=== PATIENT | male | born 1950 | race Caucasian/White ===

== ENCOUNTER 2021-08-26 13:45 | Observation (INO) | payer MEDICARE ==
--- NOTE | 2021-08-26 14:16 | ED ---
General Adult HPI - General Chief complaint: Upper Respiratory Infection Stated complaint: + covid Time Seen by Provider: 08/26/21 13:45 Source: patient, EMS, RN notes reviewed Mode of arrival: EMS Limitations: no limitations - History of Present Illness Initial comments: 70-year-old male who is brought in for evaluation after being diagnosed with COVID-19 this morning a cough for the past 3-4 days no overt fevers chills or sweats except occasional night sweats he states he was tested twice today and both are positive. He is currently at rehab for physical therapy after a T4 through T10 fusion on the ninth of this month. He was noted have dark urine per paramedics. He denies any dysuria he does have an indwelling Dee catheter. No other current complaints or modifying factors - Related Data Home Medications Medication Instructions Recorded Confirmed ARIPiprazole [Abilify] 2 mg PO DAILY@0900 08/26/21 08/26/21 Albuterol Sulfate [Accuneb] 3 ml INHALATION RT-Q4H PRN 08/26/21 08/26/21 Budesonide/Formoterol Fumarate 2 puff INHALATION RT-BID@899,209908/26/21 08/26/21 [Symbicort 160-4.5 Mcg Inhaler] Calcium Carbonate/Vitamin D3 1 tab PO DAILY@89908/26/21 08/26/21 [Calcium 500 mg-Vit D3 5 mcg (200 Unit)] Doxycycline [Vibramycin] 100 mg PO BID@0900,209908/26/21 08/26/21 Famotidine [Pepcid] 40 mg PO HS@209908/26/21 08/26/21 Finasteride [Proscar] 5 mg PO HS@209908/26/21 08/26/21 Gabapentin 300 mg PO HS@209908/26/21 08/26/21 Ipratropium [place] 0.06%Nasal 2 spray EA NOSTRIL 08/26/21 08/26/21 [Atrovent Nasal 0.06%] TID@0900,1499,2099 Linaclotide [Linzess] 72 mcg PO DAILY@0900 08/26/21 08/26/21 Losartan Potassium 50 mg PO BID@899,209908/26/21 08/26/21 Methyl Salicylate/Menth/Camph 1 patch TOPICAL DAILY@0900 /24/21 11/24/21 [Salonpas 3.1%-6.0%-10.0% Patch] Metoprolol Succinate (ER) [Toprol 50 mg PO HS@209908/26/21 08/26/21 Xl] Nicotine 21Mg/24Hr Patch [Habitrol] 1 patch TRANSDERM DAILY@89908/26/21 08/26/21 Pantoprazole [Protonix] 40 mg PO BID@899,209908/26/21 08/26/21 Pramipexole [Mirapex] 0.5 mg PO HS@209908/26/21 08/26/21 QUEtiapine [SEROquel] 25 mg PO HS@209908/26/21 08/26/21 SUMAtriptan SUCCINATE [Imitrex] 100 mg PO DAILY PRN 08/26/21 08/26/21 Sennosides/Docusate Sodium [Senna 1 cap PO BID@899,209908/26/21 08/26/21 Plus 8.6-50 mg Softgel] Simvastatin [Zocor] 40 mg PO HS@209908/26/21 08/26/21 Tamsulosin HCl [Flomax] 0.4 mg PO HS@209908/26/21 08/26/21 Venlafaxine HCl [Effexor XR] 150 mg PO DAILY@89908/26/21 08/26/21 buPROPion HCL [Wellbutrin XL] 300 mg PO DAILY@0908/26/21 08/26/21 clonazePAM [KlonoPIN] 0.25 mg PO DAILY PRN 08/26/21 08/26/21 guaiFENesin [Mucinex] 600 mg PO BID@0900,209908/26/21 08/26/21 methylPREDNISolone [Medrol Dose See Taper PO DAILY 08/26/21 08/26/21 Pack] oxyCODONE-APAP 5-325MG [Percocet 1 tab PO Q4H PRN 08/26/21 08/26/21 5-325 mg] tiZANidine [Zanaflex] 4 mg PO Q8HR PRN 08/26/21 08/26/21 Allergies Allergy/AdvReac Type Severity Reaction Status Date / Time ketamine Allergy Unknown Verified 08/26/21 15:10 lisinopril Allergy Unknown Verified 08/26/21 15:10 varenicline Allergy Unknown Verified 08/26/21 15:10 adhesive tape AdvReac Rash/Hives Verified 08/26/21 15:10 Review of Systems ROS Statement: Those systems with pertinent positive or pertinent negative responses have been documented in the HPI. ROS Other: All systems not noted in ROS Statement are negative. Past Medical History Past Medical History: Coronary Artery Disease (CAD), COPD, Hyperlipidemia, Mitral Valve Prolapse (MVP), Sleep Apnea/CPAP/BIPAP Additional Past Medical History / Comment(s): Migraines, chronic back pain, prediabetes, History of Any Multi-Drug Resistant Organisms: None Reported Past Surgical History: Back Surgery, Joint Replacement Additional Past Surgical History / Comment(s): hernias, eyes, bilateral knee replacements, shoulder replacement on left, Past Psychological History: Depression Smoking Status: Current every day smoker Past Alcohol Use History: None Reported Past Drug Use History: None Reported General Exam - General Exam Comments Initial Comments: This is a well-developed well-nourished awake alert oriented 3 male Limitations: no limitations General appearance: alert, in no apparent distress Head exam: Present: atraumatic, normocephalic, normal inspection Eye exam: Present: normal appearance, PERRL, EOMI. Absent: scleral icterus, conjunctival injection, periorbital swelling ENT exam: Present: normal exam, mucous membranes moist Neck exam: Present: normal inspection. Absent: tenderness, meningismus, lymphadenopathy Respiratory exam: Present: decreased breath sounds, other (Patient does have a appliance on his chest and back as well as extending into his neck.). Absent: respiratory distress, wheezes, rales, rhonchi, stridor Cardiovascular Exam: Present: regular rate, normal rhythm, normal heart sounds. Absent: systolic murmur, diastolic murmur, rubs, gallop, clicks GI/Abdominal exam: Present: soft, normal bowel sounds. Absent: distended, tenderness, guarding, rebound, rigid Extremities exam: Present: normal inspection, full ROM, normal capillary refill. Absent: tenderness, pedal edema, joint swelling, calf tenderness Back exam: Present: normal inspection Neurological exam: Present: alert, oriented X3, CN II-XII intact Psychiatric exam: Present: normal affect, normal mood Skin exam: Present: warm, dry, intact, normal color. Absent: rash Course Vital Signs 08/26/21 08/26/21 13:49 13:56 Temperature 98.0 F Pulse Rate 101 H Respiratory 16 16 Rate Blood Pressure 115/77 O2 Sat by Pulse 96 Oximetry EKG Findings - EKG Results: EKG: interpreted by JOLENE, sinus rhythm (Sinus rhythm of 99. Interval 126 QRS duration 94 QT since QTC 346/444 nonspecific anterior configuration) Medical Decision Making - Medical Decision Making I did discuss findings with patient family as well as with Dr. Yeboah the patient does demonstrate evidence of UTI place an IV antibiotics he is also demonstrate some evidence of dehydration IV fluids will be added. - Lab Data Result diagrams: 08/26/21 14:48 08/26/21 14:48 Lab Results 08/26/21 08/26/21 08/26/21 Range/Units 13:55 14:48 14:48 WBC 11.1 H (3.8-10.6) k/uL RBC 4.72 (3.80-5.40) m/uL Hgb 12.6 (11.4-16.0) gm/dL Hct 40.0 (34.0-46.0) % MCV 84.7 (80.0-100.0) fL MCH 26.8 (25.0-35.0) pg MCHC 31.6 (31.0-37.0) g/dL RDW 13.0 (11.5-15.5) % Plt Count 687 H (150-450) k/uL MPV 6.7 Neutrophils % 85 % Lymphocytes % 9 % Monocytes % 4 % Eosinophils % 1 % Basophils % 0 % Neutrophils # 9.5 H (1.3-7.7) k/uL Lymphocytes # 1.0 (1.0-4.8) k/uL Monocytes # 0.5 (0-1.0) k/uL Eosinophils # 0.1 (0-0.7) k/uL Basophils # 0.0 (0-0.2) k/uL Sodium 134 L (137-145) mmol/L Potassium 3.9 (3.5-5.1) mmol/L Chloride 103 (98-107) mmol/L Carbon Dioxide 21 L (22-30) mmol/L Anion Gap 10 mmol/L BUN 20 H (7-17) mg/dL Creatinine 0.92 (0.52-1.04) mg/dL Est GFR (CKD-EPI)AfAm 74 (>60 ml/min/1.73 sqM) Est GFR (CKD-EPI)NonAf 64 (>60 ml/min/1.73 sqM) Glucose 131 H (74-99) mg/dL Calcium 9.5 (8.4-10.2) mg/dL Magnesium 2.2 (1.6-2.3) mg/dL Total Bilirubin 0.3 (0.2-1.3) mg/dL AST 31 (14-36) U/L ALT 23 (4-34) U/L Alkaline Phosphatase 102 (38-126) U/L Creatine Kinase 48 (30-135) U/L Troponin I (0.000-0.034) ng/mL Total Protein 6.6 (6.3-8.2) g/dL Albumin 3.6 (3.5-5.0) g/dL Urine Color Red Urine Appearance Turbid H (Clear) Urine pH 8.5 H (5.0-8.0) Ur Specific [place] 1.031 (1.001-1.035) Urine Protein 4+ H (Negative) Urine Glucose (UA) Negative (Negative) Urine Ketones Negative (Negative) Urine Blood Moderate H (Negative) Urine Nitrite Positive H (Negative) Urine Bilirubin 1+ H (Negative) Urine Urobilinogen <2.0 (<2.0) mg/dL Ur Leukocyte Esterase Large H (Negative) Urine RBC >182 H (0-5) /hpf Urine WBC 37 H (0-5) /hpf Ur Squamous Epith Cells 3 (0-4) /hpf Triple Phos Crystals Moderate H (None) /hpf Amorphous Sediment Few H (None) /hpf Urine Bacteria Many H (None) /hpf Urine Mucus Many H (None) /hpf 08/26/21 Range/Units 14:48 WBC (3.8-10.6) k/uL RBC (3.80-5.40) m/uL Hgb (11.4-16.0) gm/dL Hct (34.0-46.0) % MCV (80.0-100.0) fL MCH (25.0-35.0) pg MCHC (31.0-37.0) g/dL RDW (11.5-15.5) % Plt Count (150-450) k/uL MPV Neutrophils % % Lymphocytes % % Monocytes % % Eosinophils % % Basophils % % Neutrophils # (1.3-7.7) k/uL Lymphocytes # (1.0-4.8) k/uL Monocytes # (0-1.0) k/uL Eosinophils # (0-0.7) k/uL Basophils # (0-0.2) k/uL Sodium (137-145) mmol/L Potassium (3.5-5.1) mmol/L Chloride (98-107) mmol/L Carbon Dioxide (22-30) mmol/L Anion Gap mmol/L BUN (7-17) mg/dL Creatinine (0.52-1.04) mg/dL Est GFR (CKD-EPI)AfAm (>60 ml/min/1.73 sqM) Est GFR (CKD-EPI)NonAf (>60 ml/min/1.73 sqM) Glucose (74-99) mg/dL Calcium (8.4-10.2) mg/dL Magnesium (1.6-2.3) mg/dL Total Bilirubin (0.2-1.3) mg/dL AST (14-36) U/L ALT (4-34) U/L Alkaline Phosphatase (38-126) U/L Creatine Kinase (30-135) U/L Troponin I <0.012 (0.000-0.034) ng/mL Total Protein (6.3-8.2) g/dL Albumin (3.5-5.0) g/dL Urine Color Urine Appearance (Clear) Urine pH (5.0-8.0) Ur Specific [place] (1.001-1.035) Urine Protein (Negative) Urine Glucose (UA) (Negative) Urine Ketones (Negative) Urine Blood (Negative) Urine Nitrite (Negative) Urine Bilirubin (Negative) Urine Urobilinogen (<2.0) mg/dL Ur Leukocyte Esterase (Negative) Urine RBC (0-5) /hpf Urine WBC (0-5) /hpf Ur Squamous Epith Cells (0-4) /hpf Triple Phos Crystals (None) /hpf Amorphous Sediment (None) /hpf Urine Bacteria (None) /hpf Urine Mucus (None) /hpf Disposition Clinical Impression: Urinary tract infection, COVID-19, Dehydration, Dee catheter present Disposition: ADMITTED IP TO THIS HOSP Condition: Fair Referrals: Humphrey Rhoades MD [Primary Care Provider] - 1-2 days
[2021-08-26 15:05] LABS: Basophils % (A) 0 %; Eosinophils # (A) 0.1 k/uL (0-0.7); Eosinophils % (A) 1 %; HGB 12.6 gm/dL (11.4-16.0); Lymphocytes % (A) 9 %; MCH 26.8 pg (25.0-35.0); MCHC 31.6 g/dL (31.0-37.0); MCV 84.7 fL (80.0-100.0); Mean Platelet Volume 6.7; Monocytes # (A) 0.5 k/uL (0-1.0); Monocytes % (A) 4 %; Neutrophils # (A) 9.5 k/uL (1.3-7.7); Neutrophils % (A) 85 %; Platelet Count 687 k/uL (150-450); RBC 4.72 m/uL (3.80-5.40); WBC 11.1 k/uL (3.8-10.6)
[2021-08-26 15:15] LABS: Albumin 3.6 g/dL (3.5-5.0); Calcium 9.5 mg/dL (8.4-10.2); Magnesium 2.2 mg/dL (1.6-2.3); Potassium 3.9 mmol/L (3.5-5.1); Total Bilirubin 0.3 mg/dL (0.2-1.3); Total Protein 6.6 g/dL (6.3-8.2)
[2021-08-26 15:23] LABS: Amorphous Sediment,Urine Few /hpf; Appearance,Urine Turbid (Clear); Bacteria,Urine Many /hpf; Bilirubin,Urine 1+ (Negative); Blood,Urine Moderate (Negative); Color,Urine Red; Glucose,Urine (UA) Negative (Negative); Ketones,Urine Negative (Negative); Leukocyte Esterase,Urine Large (Negative); Mucus,Urine Many /hpf; Nitrite,Urine Positive (Negative); PH, Urine 8.5 (5.0-8.0); Protein,Urine 4+ (Negative); RBC,Urine >182 /hpf (0-5); Specific Gravity,Urine 1.031 (1.001-1.035); Squamous Epithelial Cell,Urine 3 /hpf (0-4); Triple Phosphate Crystal,Urine Moderate /hpf; Urobilinogen,Urine <2.0 mg/dL (<2.0); WBC,Urine 37 /hpf (0-5)
--- NOTE | 2021-08-26 15:40 | XR ---
EXAMINATION TYPE: XR chest 2V DATE OF EXAM: 08/26/2021 COMPARISON: NONE HISTORY: Shortness of breath TECHNIQUE: Frontal and lateral views of the chest are obtained. FINDINGS: Scattered senescent parenchymal changes noted. Hyperinflation compatible with COPD. No evidence for infiltrate. No evidence for atelectasis. Heart size is stable. Mediastinal structures are stable and grossly unremarkable. No evidence for hilar prominence. Degenerative changes dorsal spine. IMPRESSION: 1. No evidence for acute pulmonary disease.
[2021-08-26] MEDS ORDERED: cefTRIAXone IN SWFI 1,000 MG/10 ML SYRINGE IVP STA (16:10)
[2021-08-26] MEDS ORDERED: NALOXONE 0.4 MG/ML 1 ML VIAL IV PRN (16:44)
[2021-08-26] MEDS ORDERED: ACETAMINOPHEN TAB 325 MG TAB PO PRN (16:44)
[2021-08-26] MEDS ORDERED: tiZANidine 4 MG TAB PO PRN (16:46)
[2021-08-26] MEDS ORDERED: SUMAtriptan succinate 50 MG TAB PO PRN (16:46)
[2021-08-26] MEDS ORDERED: clonazePAM 0.5 MG TAB PO PRN (16:46)
[2021-08-26] MEDS ORDERED: ALBUTEROL NEBULIZED 2.5 MG/3 ML INHALATION PRN (16:46)
[2021-08-26] MEDS ORDERED: oxyCODONE-APAP 5-325MG 1 EACH TAB PO PRN (16:46)
[2021-08-26] MEDS: SODIUM CHLORIDE 0.9% 1,000 ML IV SCH (16:53)
[2021-08-26] MEDS ORDERED: IPRATROPIUM-ALBUTEROL 3 ML NEB INHALATION PRN (19:20)
[2021-08-26] MEDS: PANTOPRAZOLE 40 MG TABLET PO SCH ×2 (19:50→20:48)
[2021-08-26] MEDS ORDERED: BUDESONIDE 1 MG/2 ML NEBU INHALATION SCH (20:00)
[2021-08-26] MEDS ORDERED: IPRATROPIUM-ALBUTEROL 3 ML NEB INHALATION SCH (20:00)
[2021-08-26] MEDS ORDERED: FORMOTEROL FUMARATE 20 MCG/2 ML NEBU INHALATION SCH (20:00)
[2021-08-26] MEDS: GABAPENTIN 300 MG CAP PO SCH (20:14)
[2021-08-26] MEDS: guaiFENesin 600 MG TABLET.ER PO SCH (20:14)
[2021-08-26] MEDS: ATORVASTATIN 20 MG TAB PO SCH (20:15)
[2021-08-26] MEDS: LOSARTAN 50 MG TAB PO SCH (20:15)
[2021-08-26] MEDS: FAMOTIDINE 20 MG TAB PO SCH (20:15)
[2021-08-26] MEDS: METOPROLOL SUCCINATE (ER) 50 MG TAB.ER.24H PO SCH (20:15)
[2021-08-26] MEDS: TAMSULOSIN 0.4 MG CAP.ER.24H PO SCH (20:16)
[2021-08-26] MEDS: methylPREDNISolone SOD SUCCI 125 MG/2 ML VIAL IV SCH (20:18)
[2021-08-26] MEDS: PRAMIPEXOLE 0.5 MG TAB PO SCH (20:31)
[2021-08-26] MEDS: QUEtiapine 25 MG TAB PO SCH (20:31)
[2021-08-26] MEDS: FINASTERIDE 5 MG TAB PO SCH (20:31)
[2021-08-26] MEDS: SENNOSIDES 8.6 MG TAB PO SCH (20:32)
[2021-08-26] MEDS: INSULIN ASPART (NovoLOG) 100 UNIT/ML VIAL SQ SCH (20:48)
[2021-08-26] MEDS ORDERED: ALBUTEROL HFA INHALER INHALATION PRN (20:49)
[2021-08-26] MEDS ORDERED: SYMBICORT 160-4.5 MCG INHALER INHALATION SCH (21:00)
--- NOTE | 2021-08-26 21:13 | HP ---
HISTORY AND PHYSICAL DATE OF SERVICE: 08/26/2021 CHIEF COMPLAINTS: Positive COVID and shortness of breath and UTI. HISTORY OF PRESENT ILLNESS: This 70-year-old gentleman with a past medical history of multiple medical problems, including history of CAD, COPD, hypertension, history of mitral valve prolapse, history of sleep apnea, back surgery, being followed by a primary physician in the [facility] area, also had recent back surgery by an orthopedic surgeon in [facility]. Subsequently the patient went to [facility] for rehab. While in [facility] the patient was cough for several days which was slightly worsening, and no fever. COVID-19 was positive and the patient was sent to [facility] and was admitted for further evaluation and treatment. The patient also had a catheter and the patient was found to have a UTI. There is no history of any fever or rigors. No history of headache, loss of consciousness, seizures. The patient was admitted for further evaluation and treatment. The labs showed WBC 11.1, sodium 134. COVID-19 was repeated here. The PCR is negative. The chest x-ray which was reviewed personally by me showed some increased bronchovascular markings. There is no history of any fever, rigor or chills at this time. PAST MEDICAL HISTORY: History of CAD, COPD, hyperlipidemia, mitral valve prolapse, recent back surgery. HOME MEDICATIONS: Zanaflex, Percocet, Medrol Dosepak, Mucinex, Klonopin, Wellbutrin, Effexor XR, Flomax, Zocor. Doses and other medications also reviewed. ALLERGIES: KETAMINE, LISINOPRIL, and ADHESIVE TAPES. FAMILY HISTORY: No history of heart disease or strokes in the family. SOCIAL HISTORY: History of smoking. No history of alcohol. REVIEW OF SYSTEMS: ENT: No diminished hearing. No diminished vision. CARDIOVASCULAR SYSTEM: No angina, palpitations. RESPIRATORY SYSTEM: As mentioned earlier. GI: As mentioned earlier. : No dysuria. NERVOUS SYSTEM: No numbness, weakness. ALLERGY/IMMUNOLOGY: No asthma or hay fever. MUSCULOSKELETAL: As mentioned earlier. HEMATOLOGY/ONCOLOGY: No history of anemia. ENDOCRINE: As mentioned earlier. CONSTITUTIONAL: As mentioned earlier. DERMATOLOGY: Negative. RHEUMATOLOGY: Negative. PSYCHIATRY: As mentioned earlier. PHYSICAL EXAMINATION: Patient is alert, oriented x3. The pulse is 89, blood pressure 130/76, respiration 16, temperature 99 degrees, pulse ox 96% on room air. HEENT: Conjunctivae normal. Oral mucosa moist. NECK: No jugular venous distention. No carotid bruit. No lymph node enlargement. CARDIOVASCULAR: S1, S2 muffled. RESPIRATION: Breath sounds diminished at the bases. A few scattered rhonchi. No crackles. ABDOMEN: Soft, non-tender. No mass palpable. LEGS: No edema. No swelling. NERVOUS SYSTEM: Higher functions as mentioned earlier. Moves all 4 limbs. No focal motor or sensory deficit. LYMPHATICS: No lymph node palpable in neck, axillae or groin. SKIN: No ulcer, rash, bleeding. JOINTS: No active deforming arthropathy. LABS: Labs at this time show WBC 11.1, platelets 687. Sodium 134. ASSESSMENT: 1. Acute urinary tract infection related to indwelling Dee catheter. 2. COVID-19 positive elsewhere; COVID-19 negative here. 3. Possible acute bronchitis. 4. Hyponatremia. 5. History of coronary artery disease. 6. Chronic obstructive pulmonary disease with possible acute purulent tracheobronchitis. 7. Hyperlipidemia. 8. Mitral valve prolapse. 9. Sleep apnea. 10.History of migraine. 11.History of recent back surgery. 12.Prediabetes. 13.Depression. 14.History of continued ongoing nicotine dependence. 15.Obesity with body mass index of 31.8. 16.FULL CODE. RECOMMENDATIONS AND DISCUSSION: In this 70-year-old gentleman who presented with multiple complex medical issues, we will monitor the patient closely, continue the current medication, continue symptomatic treatment. Otherwise at this time I would recommend broad-spectrum IV antibiotics, bronchodilators, and I would also recommend over a COVID-19 sent-out PCR. Otherwise, Infectious Disease also will be consulted. Prognosis is guarded because of multiple complex medical issues. We will optimize the bronchodilator treatment and further recommendations to follow. I would also recommend removing the Dee catheter tomorrow and trial voiding also. Flomax will be initiated. Prognosis guarded. Further recommendations to follow. A copy of this dictation is being forwarded to Dr. Rhoades, who is the primary physician. MMGABRIELA / BECKIN: [id number] / MTDAnette
[2021-08-26] MEDS: ALBUTEROL HFA INHALER INHALATION SCH ×2 (21:33→21:56)
[2021-08-26] MEDS: TIOTROPIUM 2.5 MCG INHALER INHALATION SCH (21:33)
[2021-08-26] MEDS: SYMBICORT 160-4.5 MCG INHALER INHALATION SCH ×2 (21:33→21:56)
[2021-08-26] MEDS: IPRATROPIUM BROMIDE 0.06% NASAL SPRAY (15 ML) EA NOSTRIL SCH (23:24)
[2021-08-27] MEDS: methylPREDNISolone SOD SUCCI 125 MG/2 ML VIAL IV SCH ×5 (00:53→23:37)
[2021-08-27] MEDS: SODIUM CHLORIDE 0.9% 1,000 ML IV SCH ×4 (05:07→23:37)
[2021-08-27 07:31] LABS: Glucose,Whole Blood 132 mg/dL (75-99)
[2021-08-27] MEDS: INSULIN ASPART (NovoLOG) 100 UNIT/ML VIAL SQ SCH ×4 (07:56→21:15)
[2021-08-27] MEDS: guaiFENesin 600 MG TABLET.ER PO SCH ×2 (08:11→21:11)
[2021-08-27] MEDS: PANTOPRAZOLE 40 MG TABLET PO SCH ×2 (08:11→17:00)
[2021-08-27] MEDS: buPROPion XL 300 MG TAB.ER.24H PO SCH (08:11)
[2021-08-27] MEDS: VENLAFAXINE HCL ER 150 MG CAP PO SCH (08:11)
[2021-08-27] MEDS: SENNOSIDES 8.6 MG TAB PO SCH ×2 (08:11→21:11)
[2021-08-27] MEDS: CALCIUM CARB-VIT D 500 MG-5 MCG TAB PO SCH (08:11)
[2021-08-27] MEDS: LOSARTAN 50 MG TAB PO SCH ×2 (08:11→21:12)
[2021-08-27] MEDS: ARIPiprazole 2 MG TAB PO SCH (08:11)
[2021-08-27] MEDS: NICOTINE 21MG/24HR PATCH TRANSDERM SCH (08:12)
[2021-08-27] MEDS: ALBUTEROL HFA INHALER INHALATION SCH ×4 (08:13→19:04)
[2021-08-27] MEDS: NON FORMULARY DRUG (Linaclotide [Linzess] 72 MCG Capsule) PO SCH (08:13)
[2021-08-27] MEDS: SYMBICORT 160-4.5 MCG INHALER INHALATION SCH ×2 (08:13→19:05)
[2021-08-27] MEDS: TIOTROPIUM 2.5 MCG INHALER INHALATION SCH (08:20)
[2021-08-27 09:41] LABS: Basophils % (A) 0 %; Eosinophils % (A) 0 %; HCT 36.5 % (39.0-53.0); HGB 11.7 gm/dL (13.0-17.5); Lymphocytes # (A) 0.6 k/uL (1.0-4.8); Lymphocytes % (A) 10 %; MCH 27.2 pg (25.0-35.0); MCHC 32.1 g/dL (31.0-37.0); MCV 84.8 fL (80.0-100.0); Mean Platelet Volume 6.9; Monocytes # (A) 0.1 k/uL (0-1.0); Monocytes % (A) 1 %; Neutrophils # (A) 5.5 k/uL (1.3-7.7); Neutrophils % (A) 89 %; Platelet Count 686 k/uL (150-450); RBC 4.31 m/uL (4.30-5.90); RDW 13.3 % (11.5-15.5); WBC 6.2 k/uL (3.8-10.6)
[2021-08-27 09:52] LABS: African American GFR (CKD) >90 (>60 ml/min/1.73 sqM); Anion Gap 9 mmol/L; Blood Urea Nitrogen 16 mg/dL (9-20); Carbon Dioxide 22 mmol/L (22-30); Chloride 103 mmol/L (98-107); Glucose 141 mg/dL (74-99); Non-African American GFR(CKD) >90 (>60 ml/min/1.73 sqM); Potassium 4.8 mmol/L (3.5-5.1); Sodium 134 mmol/L (137-145)
[2021-08-27 12:13] LABS: Glucose,Whole Blood 133 mg/dL (75-99)
[2021-08-27 16:56] LABS: Glucose,Whole Blood 160 mg/dL (75-99)
[2021-08-27] MEDS: IPRATROPIUM BROMIDE 0.06% NASAL SPRAY (15 ML) EA NOSTRIL SCH ×3 (17:00→21:16)
--- NOTE | 2021-08-27 19:57 | PN ---
PROGRESS NOTE DATE OF SERVICE: 08/27/2021 This 70-year-old gentleman who was admitted with acute UTI also had COVID-19 infection. The most recent chest x-ray which was reviewed personally by me showed some bilateral infiltrates. COVID pneumonia is a possibility. The pulse ox is well maintained at this time. No chest pain. No palpitations. No fever. Past medical history reviewed. REVIEW OF SYSTEMS: CARDIOVASCULAR SYSTEM: As mentioned earlier. RESPIRATION: As mentioned earlier. GI: As mentioned earlier. : No dysuria. NERVOUS SYSTEM: No numbness, weakness. CURRENT MEDICATIONS: Reviewed. They include Tylenol, Ventolin, Abilify, Lipitor, Symbicort. Doses are reviewed. PHYSICAL EXAMINATION: Patient is alert, oriented x2. Pulse 93, blood pressure 143/80, respiration 18, temperature 98.5, pulse ox 94% on room air. HEENT: Conjunctivae normal. NECK: No jugular venous distention. CARDIOVASCULAR: S1, S2 muffled. RESPIRATION: Breath sounds diminished at the bases. A few scattered rhonchi. ABDOMEN: Soft. NERVOUS SYSTEM: No focal deficit. LABS: WBC 6.2, hemoglobin 11.9. Other labs are noted. COVID-19 is positive. ASSESSMENT: 1. Acute urinary tract infection related to indwelling Dee catheter, present on admission. 2. Acute COVID-19 infection with possible COVID-19 bilateral pneumonia. 3. Possible acute bronchitis. 4. Hyponatremia. 5. History of coronary artery disease. 6. Chronic obstructive pulmonary disease, acute exacerbation, with acute purulent tracheobronchitis. 7. Hyperlipidemia. 8. Mitral valve prolapse. 9. Sleep apnea. 10.History of migraine. 11.History of recent back surgery. 12.Prediabetes. 13.Depression. 14.History of continued ongoing nicotine dependence. 15.Obesity with body mass index of 31.8. 16.FULL CODE. RECOMMENDATIONS AND DISCUSSION: I recommend to continue current medications, continue with the monitoring, symptomatic treatment. Continue with bronchodilators. Continue with empiric antibiotics. I would also recommend D-dimer. If it is positive, CT angio of the chest. Otherwise, continue to monitor. The cultures are negative so far. Also recommend a consult with Dr. Howard regarding COVID-19. Prognosis guarded. Further recommendations to follow. MMODL / IJN: [id number] /
[2021-08-27 20:14] LABS: Prothrombin Time 10.3 sec (9.0-12.0)
[2021-08-27 20:45] LABS: Glucose,Whole Blood 121 mg/dL (75-99)
[2021-08-27] MEDS: METOPROLOL SUCCINATE (ER) 50 MG TAB.ER.24H PO SCH (21:11)
[2021-08-27] MEDS: ATORVASTATIN 20 MG TAB PO SCH (21:11)
[2021-08-27] MEDS: PRAMIPEXOLE 0.5 MG TAB PO SCH (21:11)
[2021-08-27] MEDS: TAMSULOSIN 0.4 MG CAP.ER.24H PO SCH (21:11)
[2021-08-27] MEDS: FINASTERIDE 5 MG TAB PO SCH (21:11)
[2021-08-27] MEDS: FAMOTIDINE 20 MG TAB PO SCH (21:11)
[2021-08-27] MEDS: GABAPENTIN 300 MG CAP PO SCH (21:12)
[2021-08-27] MEDS: QUEtiapine 25 MG TAB PO SCH (21:12)
[2021-08-28] MEDS: methylPREDNISolone SOD SUCCI 125 MG/2 ML VIAL IV SCH ×3 (05:21→17:00)
[2021-08-28 07:17] LABS: Glucose,Whole Blood 125 mg/dL (75-99)
[2021-08-28] MEDS: INSULIN ASPART (NovoLOG) 100 UNIT/ML VIAL SQ SCH ×4 (07:37→22:19)
[2021-08-28] MEDS: SYMBICORT 160-4.5 MCG INHALER INHALATION SCH ×2 (08:07→19:17)
[2021-08-28] MEDS: TIOTROPIUM 2.5 MCG INHALER INHALATION SCH (08:07)
[2021-08-28] MEDS: ALBUTEROL HFA INHALER INHALATION SCH ×4 (08:07→19:17)
[2021-08-28] MEDS: guaiFENesin 600 MG TABLET.ER PO SCH ×2 (08:46→22:17)
[2021-08-28] MEDS: VENLAFAXINE HCL ER 150 MG CAP PO SCH (08:46)
[2021-08-28] MEDS: buPROPion XL 300 MG TAB.ER.24H PO SCH (08:46)
[2021-08-28] MEDS: NICOTINE 21MG/24HR PATCH TRANSDERM SCH (08:46)
[2021-08-28] MEDS: SENNOSIDES 8.6 MG TAB PO SCH ×2 (08:46→22:17)
[2021-08-28] MEDS: LOSARTAN 50 MG TAB PO SCH ×2 (08:46→22:16)
[2021-08-28] MEDS: PANTOPRAZOLE 40 MG TABLET PO SCH ×2 (08:46→17:00)
[2021-08-28] MEDS: CALCIUM CARB-VIT D 500 MG-5 MCG TAB PO SCH (08:46)
[2021-08-28] MEDS: IPRATROPIUM BROMIDE 0.06% NASAL SPRAY (15 ML) EA NOSTRIL SCH ×3 (08:48→22:19)
[2021-08-28] MEDS: ARIPiprazole 2 MG TAB PO SCH (08:48)
[2021-08-28] MEDS: SODIUM CHLORIDE 0.9% 1,000 ML IV SCH ×3 (08:55→23:49)
[2021-08-28 08:57] LABS: Basophils # (A) 0.01 X 10*3/uL (0.00-0.10); Basophils % (A) 0.1 %; Eosinophils # (A) 0 X 10*3/uL (0.04-0.35); Eosinophils % (A) 0 %; HCT 33.2 % (39.6-50.0); HGB 10.6 g/dL (13.0-17.0); Lymphocytes # (A) 1.04 X 10*3/uL (0.90-5.00); Lymphocytes % (A) 7.7 %; MCH 26.4 pg (27.0-32.0); MCHC 31.9 g/dL (32.0-37.0); MCV 82.8 fL (80.0-97.0); Mean Platelet Volume 8.8 fL (9.5-12.2); Monocytes # (A) 0.58 X 10*3/uL (0.20-1.00); Monocytes % (A) 4.3 %; Neutrophils # (A) 11.86 X 10*3/uL (1.80-7.70); Neutrophils % (A) 87.3 %; Platelet Count 612 X 10*3/uL (140-440); RBC 4.01 X 10*6/uL (4.40-5.60); RDW 13.5 % (11.5-14.5); WBC 13.57 X 10*3/uL (4.50-10.00)
[2021-08-28 09:16] LABS: African American GFR (CKD) 111.6 (60.0-200.0); Albumin 3.3 g/dL (3.8-4.9); Albumin/Globulin Ratio 1.43 (1.60-3.17); Anion Gap 10.5 mmol/L (10.00-18.00); BUN/Creat Ratio 23.29 Ratio (12.00-20.00); Blood Urea Nitrogen 16.3 mg/dL (9.0-27.0); Calcium 9.1 mg/dL (8.7-10.3); Carbon Dioxide 20.5 mmol/L (20.0-27.5); Globulin 2.3 g/dL (1.6-3.3); Non-African American GFR(CKD) 96.3 (60.0-200.0); Potassium 4.3 mmol/L (3.5-5.5); Total Bilirubin 0.3 mg/dL (0.30-1.20); Total Protein 5.6 g/dL (6.2-8.2)
[2021-08-28] MEDS: NON FORMULARY DRUG (Linaclotide [Linzess] 72 MCG Capsule) PO SCH (09:30)
--- NOTE | 2021-08-28 10:05 | P.CONS ---
History of Present Illness - Reason for Consult Consult date: 08/27/21 covid and UTI Requesting physician: Jourdan Yeboah - Chief Complaint cough x few days - History of Present Illness History of present illness : Patient is 70-year male with recent history of a fall resulting in thoracic spine fracture in this patient who is status post T4-T10 fusion that was done on 08/11/2021 the patient has been undergoing rehab for physical therapy with the patient was diagnosed with a COVID-19 for the patient has been sent to the ER yesterday afternoon for further evaluation patient has been complaining of some cough for the last 3 to 4 days which is mild in nature patient denies having any shortness of breath and is not hypoxic not requiring any supplemental oxygen patient did have a mild elevated white count on admission with no lymphopenia initially however the white count this morning is normal and did have lymphopenia D-dimer was mildly elevated creatinine was normal liver enzymes are normal urine is positive hernandez PCR was positive patient has been admitted to hospital started on Rocephin infectious disease was consulted for further management patient overall is feeling better and would like to go back to his rehab Review of system: CONSTITUTIONAL: Positive for weakness denies high-grade fever. EYES: No complaint. ENT: No complaint. RESPIRATORY: As per history of present illness. CARDIOVASCULAR: No complaint. GENITOURINARY: No complaint. GASTROINTESTINAL: No complaint. MUSCULOSKELETAL: No complaint. INTEGUMENTARY: No complaint. PSYCHOLOGIC: No complaint. ENDOCRINE: No complaint. NEUROLOGIC: No complaint. Past medical history : Reviewed, documented below Past surgical history : Reviewed, documented below Social history: Reviewed, documented below Medications: Reviewed, as documented below EXAMINATION: Vital sigans= Reviewed and documented below GENERAL DESCRIPTION: Elderly male lying in bed, no distress. No tachypnea or accessory muscle of respiration use. HEENT: Shows Pallor , no scleral icterus. Oral mucous membrane is dry. NECK: Trachea central, no thyromegaly. LUNGS: Unlabored breathing. Decrease intensity of breath sounds. No wheeze or crackle. HEART: S1, S2, regular rate and rhythm. ABDOMEN: Soft, no tenderness , guarding or rigidity EXTREMITIES: No edema of feet. SKIN: No rash, no masses palpable. Thoracic spine incision looks clean yuly are intact no redness NEUROLOGICAL: The patient is awake, alert, oriented x3, mood and affect normal. LABS AND RADIOLOGY: Reviewed results see below Assessment : 1-patient presented to hospital with a positive Covid test in this patient currently undergoing rehab after his thoracic spine surgery patient did have mild cough and no significant hypoxemia or need for supplemental oxygen therapy chest x-ray was negative for acute cardiopulmonary disease 2-patient did have a positive UA and recent Dee catheterization possible symp tomatic urinary tract infection from enteric gram-negative pathogen Plan: 1-Rocephin 1 g daily to continue for UTI 2-S4 discovered the patient is not hypoxic chest x-ray was negative for pneumonia more likely mild illness and will be treated with supportive treatment however the patient developed hypoxemia or pneumonia will benefit from remdesivir 3-droplet isolation and respiratory support We will follow on clinical condition and cultures to further adjust medication if needed Thank you for this consultation we will follow the patient along with you Past Medical History Past Medical History: Coronary Artery Disease (CAD), COPD, Hyperlipidemia, Tacho ral Valve Prolapse (MVP), Sleep Apnea/CPAP/BIPAP Additional Past Medical History / Comment(s): Migraines, chronic back pain, prediabetes, History of Any Multi-Drug Resistant Organisms: None Reported Past Surgical History: Back Surgery, Joint Replacement Additional Past Surgical History / Comment(s): hernias, eyes, bilateral knee replacements, shoulder replacement on left, Past Anesthesia/Blood Transfusion Reactions: No Reported Reaction Past Psychological History: Depression Smoking Status: Current every day smoker Past Alcohol Use History: None Reported Past Drug Use History: None Reported Medications and Allergies Home Medications Medication Instructions Recorded Confirmed Type ARIPiprazole [Abilify] 2 mg PO DAILY@0908/26/21 08/26/21 History Albuterol Sulfate [Accuneb] 3 ml INHALATION RT-Q4H PRN 08/26/21 08/26/21 History Budesonide/Formoterol Fumarate 2 puff INHALATION RT-BID@899,209908/26/21 08/26/21 History [Symbicort 160-4.5 Mcg Inhaler] Calcium Carbonate/Vitamin D3 1 tab PO DAILY@0900 08/26/21 08/26/21 History [Calcium 500 mg-Vit D3 5 mcg (200 Unit)] Doxycycline [Vibramycin] 100 mg PO BID@09,209908/26/21 08/26/21 History Famotidine [Pepcid] 40 mg PO HS@209908/26/21 08/26/21 History Finasteride [Proscar] 5 mg PO HS@209908/26/21 08/26/21 History Gabapentin 300 mg PO HS@209908/26/21 08/26/21 History Ipratropium [place] 0.06%Nasal 2 spray EA NOSTRIL 08/26/21 08/26/21 History [Atrovent Nasal 0.06%] TID@0900,1499,2099 Linaclotide [Linzess] 72 mcg PO DAILY@0908/26/21 08/26/21 History Losartan Potassium 50 mg PO BID@899,209908/26/21 08/26/21 History Methyl Salicylate/Menth/Camph 1 patch TOPICAL DAILY@89908/26/21 08/26/21 History [Salonpas 3.1%-6.0%-10.0% Patch] Metoprolol Succinate (ER) [Toprol 50 mg PO HS@209908/26/21 08/26/21 History Xl] Nicotine 21Mg/24Hr Patch [Habitrol] 1 patch TRANSDERM DAILY@89908/26/21 08/26/21 History Pantoprazole [Protonix] 40 mg PO BID@09,209908/26/21 08/26/21 History Pramipexole [Mirapex] 0.5 mg PO HS@209908/26/21 08/26/21 History QUEtiapine [SEROquel] 25 mg PO HS@209908/26/21 08/26/21 History SUMAtriptan SUCCINATE [Imitrex] 100 mg PO DAILY PRN 08/26/21 08/26/21 History Sennosides/Docusate Sodium [Senna 1 cap PO BID@0900,209908/26/21 08/26/21 History Plus 8.6-50 mg Softgel] Simvastatin [Zocor] 40 mg PO HS@209908/26/21 08/26/21 History Tamsulosin HCl [Flomax] 0.4 mg PO HS@209908/26/21 08/26/21 History Venlafaxine HCl [Effexor XR] 150 mg PO DAILY@0900 08/26/21 08/26/21 History buPROPion HCL [Wellbutrin XL] 300 mg PO DAILY@0900 08/26/21 08/26/21 History clonazePAM [KlonoPIN] 0.25 mg PO DAILY PRN 08/26/21 08/26/21 History guaiFENesin [Mucinex] 600 mg PO BID@0900,2100 08/26/21 08/26/21 History methylPREDNISolone [Medrol Dose See Taper PO DAILY 08/26/21 08/26/21 History Pack] oxyCODONE-APAP 5-325MG [Percocet 1 tab PO Q4H PRN 08/26/21 08/26/21 History 5-325 mg] tiZANidine [Zanaflex] 4 mg PO Q8HR PRN 08/26/21 08/26/21 History Allergies Allergy/AdvReac Type Severity Reaction Status Date / Time ketamine Allergy Unknown Verified 08/26/21 15:10 lisinopril Allergy Unknown Verified 08/26/21 15:10 varenicline Allergy Unknown Verified 08/26/21 15:10 adhesive tape AdvReac Rash/Hives Verified 08/26/21 15:10 Physical Exam Vitals: Vital Signs Temp Pulse Pulse Resp BP BP Pulse Ox 08/27/21 10:18 98.8 F 88 16 148/89 96 08/27/21 06:18 97.8 F 74 17 147/84 96 08/27/21 02:00 98.2 F 75 17 127/78 94 L 08/26/21 22:58 98 F 81 18 124/72 94 L 08/26/21 14:56 99.0 F 89 16 113/76 96 08/26/21 13:56 16 Intake and Output 08/26/21 08/27/21 08/27/21 22:59 06:59 14:59 Output Total 500 Balance -500 Output: Urine 500 Other: Voiding Method Indwelling Catheter Indwelling Catheter Weight 100.698 kg Results CBC & Chem 7: 08/28/21 06:06 08/28/21 06:06 Labs: Abnormal Lab Results - Last 24 Hours (Table) 08/26/21 08/26/21 08/26/21 Range/Units 13:55 14:48 14:48 WBC 11.1 H (3.8-10.6) k/uL Hgb (13.0-17.5) gm/dL Hct (39.0-53.0) % Plt Count 687 H (150-450) k/uL Neutrophils # 9.5 H (1.3-7.7) k/uL Lymphocytes # (1.0-4.8) k/uL Sodium 134 L (137-145) mmol/L Carbon Dioxide 21 L (22-30) mmol/L BUN 20 H (7-17) mg/dL Glucose 131 H (74-99) mg/dL POC Glucose (mg/dL) (75-99) mg/dL Urine Appearance Turbid H (Clear) Urine pH 8.5 H (5.0-8.0) Urine Protein 4+ H (Negative) Urine Blood Moderate H (Negative) Urine Nitrite Positive H (Negative) Urine Bilirubin 1+ H (Negative) Ur Leukocyte Esterase Large H (Negative) Urine RBC >182 H (0-5) /hpf Urine WBC 37 H (0-5) /hpf Triple Phos Crystals Moderate H (None) /hpf Amorphous Sediment Few H (None) /hpf Urine Bacteria Many H (None) /hpf Urine Mucus Many H (None) /hpf Coronavirus (PCR) (Not Detected) 08/26/21 08/27/21 08/27/21 Range/Units 20:06 07:30 08:50 WBC (3.8-10.6) k/uL Hgb 11.7 L (13.0-17.5) gm/dL Hct 36.5 L (39.0-53.0) % Plt Count 686 H (150-450) k/uL Neutrophils # (1.3-7.7) k/uL Lymphocytes # 0.6 L (1.0-4.8) k/uL Sodium (137-145) mmol/L Carbon Dioxide (22-30) mmol/L BUN (7-17) mg/dL Glucose (74-99) mg/dL POC Glucose (mg/dL) 132 H (75-99) mg/dL Urine Appearance (Clear) Urine pH (5.0-8.0) Urine Protein (Negative) Urine Blood (Negative) Urine Nitrite (Negative) Urine Bilirubin (Negative) Ur Leukocyte Esterase (Negative) Urine RBC (0-5) /hpf Urine WBC (0-5) /hpf Triple Phos Crystals (None) /hpf Amorphous Sediment (None) /hpf Urine Bacteria (None) /hpf Urine Mucus (None) /hpf Coronavirus (PCR) Detected A (Not Detected) 08/27/21 08/27/21 Range/Units 08:50 12:12 WBC (3.8-10.6) k/uL Hgb (13.0-17.5) gm/dL Hct (39.0-53.0) % Plt Count (150-450) k/uL Neutrophils # (1.3-7.7) k/uL Lymphocytes # (1.0-4.8) k/uL Sodium 134 L (137-145) mmol/L Carbon Dioxide (22-30) mmol/L BUN (7-17) mg/dL Glucose 141 H (74-99) mg/dL POC Glucose (mg/dL) 133 H (75-99) mg/dL Urine Appearance (Clear) Urine pH (5.0-8.0) Urine Protein (Negative) Urine Blood (Negative) Urine Nitrite (Negative) Urine Bilirubin (Negative) Ur Leukocyte Esterase (Negative) Urine RBC (0-5) /hpf Urine WBC (0-5) /hpf Triple Phos Crystals (None) /hpf Amorphous Sediment (None) /hpf Urine Bacteria (None) /hpf Urine Mucus (None) /hpf Coronavirus (PCR) (Not Detected) Microbiology - Last 24 Hours (Table) 08/26/21 13:55 Urine Culture - Preliminary Urine,Voided
--- NOTE | 2021-08-28 12:07 | XR ---
EXAMINATION TYPE: XR chest 1V portable DATE OF EXAM: 08/28/2021 COMPARISON: Chest x-ray 08/26/2021 HISTORY: Pneumonia TECHNIQUE: Single frontal view of the chest is obtained. FINDINGS: Patchy density within the lungs show similar appearance. No evident pneumothorax or pleura l effusion. Surgical yuly are present over the midline, postop change to the spine and left should er again seen. Cardiac mediastinal silhouette is stable. Bones are unchanged. IMPRESSION: Correlate for pneumonia.
[2021-08-28 12:09] LABS: Glucose,Whole Blood 116 mg/dL (75-99)
[2021-08-28 16:58] LABS: Glucose,Whole Blood 142 mg/dL (75-99)
[2021-08-28 20:20] LABS: Glucose,Whole Blood 164 mg/dL (75-99)
[2021-08-28] MEDS: METOPROLOL SUCCINATE (ER) 50 MG TAB.ER.24H PO SCH (22:16)
[2021-08-28] MEDS: GABAPENTIN 300 MG CAP PO SCH (22:16)
[2021-08-28] MEDS: TAMSULOSIN 0.4 MG CAP.ER.24H PO SCH (22:17)
[2021-08-28] MEDS: FINASTERIDE 5 MG TAB PO SCH ×2 (22:17→22:18)
[2021-08-28] MEDS: QUEtiapine 25 MG TAB PO SCH (22:17)
[2021-08-28] MEDS: ATORVASTATIN 20 MG TAB PO SCH (22:18)
[2021-08-28] MEDS: FAMOTIDINE 20 MG TAB PO SCH (22:18)
[2021-08-28] MEDS: PRAMIPEXOLE 0.5 MG TAB PO SCH (22:56)
--- NOTE | 2021-08-28 23:52 | P.PN ---
Subjective Progress Note Date: 08/28/21 This is a 70-year-old male who was recently admitted with acute urinary tract infection also acute COVID-19 infection and is being closely monitored. Infectious disease also following. Patient continues to deny shortness of breath and is requesting to go home although awaiting for finalized urine cult ures to determine discharge antibiotics. Patient is continued on IV ceftriaxone preliminary cultures are showing gram-negative bacilli. Patient is afebrile. Labs: White blood count is 13.57, hemoglobin is 10.6, platelets are 612, sodium is 136, potassium 4.3, creatinine is 0.7 Review of systems: Constitutional: No reports of fatigue, fever, or chills Cardiovascular: No reports of chest pain or palpitations Respiratory: No reports of worsening shortness of breath or cough GI: No reports of nausea, vomiting, or diarrhea : No reports of dysuria or retention Neurovascular: No reports of numbness or weakness All medications have been reviewed Active Medications Acetaminophen (Acetaminophen Tab 325 Mg Tab) 650 mg PO Q6HR PRN PRN Reason: Mild Pain or Fever > 100.5 Albuterol Sulfate (Albuterol Hfa Inhaler) 1 puff INHALATION RT-QID [facility] Last Admin: 08/28/21 15:01 Dose: 1 puff Documented by: Albuterol Sulfate (Albuterol Hfa Inhaler) 1 puff INHALATION RT-Q2H PRN PRN Reason: Shortness Of Breath Or Wheezing Aripiprazole (Aripiprazole 2 Mg Tab) 2 mg PO DAILY@0900 [facility] Last Admin: 08/28/21 08:48 Dose: 2 mg Documented by: Atorvastatin Calcium (Atorvastatin 20 Mg Tab) 20 mg PO HS@2100 [facility] Last Admin: 08/27/21 21:11 Dose: 20 mg Documented by: Budesonide/Formoterol Fumarate (Symbicort 160-4.5 Mcg Inhaler) 2 puff INHALATION RT-BID [facility] Last Admin: 08/28/21 08:07 Dose: 2 puff Documented by: Bupropion HCl (Bupropion Xl 300 Mg Tab.Er.24h) 300 mg PO DAILY@0900 [facility] Last Admin: 08/28/21 08:46 Dose: 300 mg Documented by: Calcium Carbonate (Calcium Carb-Vit D 500 Mg-5 Mcg Tab) 1 each PO DAILY@0900 [facility] Last Admin: 08/28/21 08:46 Dose: 1 each Documented by: Clonazepam (Clonazepam 0.5 Mg Tab) 0.25 mg PO DAILY PRN PRN Reason: Anxiety Famotidine (Famotidine 20 Mg Tab) 40 mg PO HS@2099 [facility] Last Admin: 08/27/21 21:11 Dose: 40 mg Documented by: Finasteride (Finasteride 5 Mg Tab) 5 mg PO HS@2100 [facility] Last Admin: 08/27/21 21:11 Dose: 5 mg Documented by: Gabapentin (Gabapentin 300 Mg Cap) 300 mg PO HS@2099 [facility] Last Admin: 08/27/21 21:12 Dose: 300 mg Documented by: Guaifenesin (Guaifenesin 600 Mg Tablet.Er) 600 mg PO BID@899,2099 [facility] Last Admin: 08/28/21 08:46 Dose: 600 mg Documented by: Sodium Chloride (Saline 0.9%) 1,000 mls @ 130 mls/hr IV .Q7H42M [facility] Last Admin: 08/28/21 08:55 Dose: 130 mls/hr Documented by: Ceftriaxone Sodium 1 gm/ (Sodium Chloride) 50 mls @ 100 mls/hr IVPB Q24HR [facility] Last Admin: 08/28/21 08:47 Dose: 100 mls/hr Documented by: Insulin Aspart (Insulin Aspart (Novolog) 100 Unit/Ml Vial) 0 unit SQ ACHS [facility]; Protocol Last Admin: 08/28/21 12:37 Dose: Not Given Documented by: Ipratropium [place] (Ipratropium [place] 0.06% Nasal [place] (15 Ml)) 2 spray EA NOSTRIL TID@0900,1499,2099 [facility] Last Admin: 08/28/21 08:48 Dose: 2 spray Documented by: Losartan Potassium (Losartan 50 Mg Tab) 50 mg PO BID@899,2099 [facility] Last Admin: 08/28/21 08:46 Dose: 50 mg Documented by: Methylprednisolone Sodium Succinate (Methylprednisolone Sod Succi 125 Mg/2 Ml Vial) 60 mg IV Q6HR [facility] Last Admin: 08/28/21 12:37 Dose: 60 mg Documented by: Metoprolol Succinate (Metoprolol Succinate (Er) 50 Mg Tab.Er.24h) 50 mg PO HS@2100 [facility] Last Admin: 08/27/21 21:11 Dose: 50 mg Documented by: Naloxone HCl (Naloxone 0.4 Mg/Ml 1 Ml Vial) 0.2 mg IV Q2M PRN PRN Reason: Opioid Reversal Nicotine (Nicotine 21mg/24hr Patch) 1 patch TRANSDERM DAILY@899 [facility] Last Admin: 08/28/21 08:46 Dose: 1 patch Documented by: Non-Formulary Medication (Linaclotide [Linzess]) 72 mcg PO DAILY@09 [facility] Last Admin: 08/28/21 09:30 Dose: Not Given Documented by: Oxycodone/Acetaminophen (Oxycodone-Apap 5-325mg 1 Each Tab) 1 each PO Q4H PRN PRN Reason: Moderate Pain Last Admin: 08/26/21 20:15 Dose: 1 each Documented by: Pantoprazole Sodium (Pantoprazole 40 Mg Tablet) 40 mg PO AC-BID [facility] Last Admin: 08/28/21 08:46 Dose: 40 mg Documented by: Pramipexole Dihydrochloride (Pramipexole 0.5 Mg Tab) 0.5 mg PO HS@2099 [facility] Last Admin: 08/27/21 21:11 Dose: 0.5 mg Documented by: Quetiapine Fumarate (Quetiapine 25 Mg Tab) 25 mg PO HS@2099 [facility] Last Admin: 08/27/21 21:12 Dose: 25 mg Documented by: Senna (Sennosides 8.6 Mg Tab) 8.6 mg PO BID@899,2099 [facility] Last Admin: 08/28/21 08:46 Dose: 8.6 mg Documented by: Sumatriptan Succinate (Sumatriptan Succinate 50 Mg Tab) 100 mg PO DAILY PRN PRN Reason: Migraine Headache Tamsulosin HCl (Tamsulosin 0.4 Mg Cap.Er.24h) 0.4 mg PO HS@2099 [facility] Last Admin: 08/27/21 21:11 Dose: 0.4 mg Documented by: Tiotropium [place] (Tiotropium 2.5 Mcg Inhaler) 2 puff INHALATION RT-DAILY [facility] Last Admin: 08/28/21 08:07 Dose: 2 puff Documented by: Tizanidine HCl (Tizanidine 4 Mg Tab) 4 mg PO Q8HR PRN PRN Reason: Muscle Spasm Venlafaxine HCl (Venlafaxine Hcl Er 150 Mg Cap) 150 mg PO DAILY@899 [facility] Last Admin: 11/26/21 08:46 Dose: 150 mg Documented by: Physical exam: Gen: This is 70-year-old male who is awake, alert and oriented 3, well- developed, well-nourished.. temp is 98.9, pulse is 81, respirations are 18, blood pressure 161/92, oxygen saturation is 92% on room air HEENT: Head is atraumatic, normocephalic. Pupils equal, round. Sclerae is anicteric. NECK: Supple. No JVD. No lymphadenopathy. No thyromegaly. LUNGS: Breath sounds are diminished at the bases with no wheezing and scattered course rhonchi noted. No intercostal retractions. HEART: S1, S2 are muffled ABDOMEN: Soft. Obese. Bowel sounds are present. No masses. No tenderness. EXTREMITIES: No pedal edema. No calf tenderness. NEUROLOGICAL: Alert and oriented 3, no focal deficits Assessment: Acute urinary tract infection related indwelling Dee catheter, present on admission Acute COVID-19 infection with possible COVID-19 bilateral pneumonia Possible acute bronchitis Hyponatremia history of coronary artery disease Chronic obstructive pulmonary disease, acute exacerbation with acute purulent tracheobronchitis hyperlipidemia Mitral valve prolapse sleep apnea History of migraine history of recent back surgery Pre-diabetes Depression history of ongoing nicotine dependence obesity with a body mass index of 31.9 No code Plan: Recommend to continue with current medications and management and symptomatic treatment. Infectious disease following and patient denies any shortness of breath. Patient continued on IV steroids and also having some elevated WBC which may be a component of steroid induced. Will repeat am labs. Patient is a febrile. Patient cotninued on Rocephin and will continue. Preliminary urine cultures showing gram negative bacilli and awaiting the finalized cultures to determine discharge antibiotics. Patient is requesting to go home. Due to multiple complex medical issues prognosis is guarded. Will Continue to monitor closely. Possible discharge in 24 hours. Objective - Vital Signs Vital signs: Vital Signs Temp 98.9 F 08/28/21 06:00 Pulse 81 08/28/21 06:00 Resp 18 08/28/21 08:00 BP 161/92 08/28/21 06:00 Pulse Ox 92 L 08/28/21 06:00 Intake & Output 08/27/21 08/28/21 08/28/21 18:59 06:59 18:59 Output Total 1400 1700 Balance -1400 -1700 Output: Urine 1400 1700 Other: Voiding Method Indwelling Catheter Indwelling Catheter Indwelling Catheter - Labs CBC & Chem 7: 08/28/21 06:06 08/28/21 06:06 Labs: Abnormal Lab Results - Last 24 Hours (Table) 08/26/21 08/27/21 08/27/21 Range/Units 20:06 12:12 16:48 WBC (4.50-10.00) X 10*3/uL RBC (4.40-5.60) X 10*6/uL Hgb (13.0-17.0) g/dL Hct (39.6-50.0) % MCH (27.0-32.0) pg MCHC (32.0-37.0) g/dL Plt Count (140-440) X 10*3/uL MPV (9.5-12.2) fL Immature Gran # (0.00-0.04) X 10*3/uL Neutrophils # (1.80-7.70) X 10*3/uL Eosinophils # (0.04-0.35) X 10*3/uL APTT (22.0-30.0) sec D-Dimer (<0.60) mg/L FEU BUN/Creatinine Ratio (12.00-20.00) Ratio Glucose (70-110) mg/dL POC Glucose (mg/dL) 133 H 160 H (75-99) mg/dL Total Protein (6.2-8.2) g/dL Albumin (3.8-4.9) g/dL Albumin/Globulin Ratio (1.60-3.17) g/dL Coronavirus (PCR) Detected A (Not Detected) 08/27/21 08/27/21 08/28/21 Range/Units 19:19 20:43 06:06 WBC 13.57 H (4.50-10.00) X 10*3/uL RBC 4.01 L (4.40-5.60) X 10*6/uL Hgb 10.6 L (13.0-17.0) g/dL Hct 33.2 L (39.6-50.0) % MCH 26.4 L (27.0-32.0) pg MCHC 31.9 L (32.0-37.0) g/dL Plt Count 612 H (140-440) X 10*3/uL MPV 8.8 L (9.5-12.2) fL Immature Gran # 0.08 H (0.00-0.04) X 10*3/uL Neutrophils # 11.86 H (1.80-7.70) X 10*3/uL Eosinophils # 0 L (0.04-0.35) X 10*3/uL APTT 21.0 L (22.0-30.0) sec D-Dimer 2.48 H (<0.60) mg/L FEU BUN/Creatinine Ratio (12.00-20.00) Ratio Glucose (70-110) mg/dL POC Glucose (mg/dL) 121 H (75-99) mg/dL Total Protein (6.2-8.2) g/dL Albumin (3.8-4.9) g/dL Albumin/Globulin Ratio (1.60-3.17) g/dL Coronavirus (PCR) (Not Detected) 08/28/21 08/28/21 Range/Units 06:06 07:15 WBC (4.50-10.00) X 10*3/uL RBC (4.40-5.60) X 10*6/uL Hgb (13.0-17.0) g/dL Hct (39.6-50.0) % MCH (27.0-32.0) pg MCHC (32.0-37.0) g/dL Plt Count (140-440) X 10*3/uL MPV (9.5-12.2) fL Immature Gran # (0.00-0.04) X 10*3/uL Neutrophils # (1.80-7.70) X 10*3/uL Eosinophils # (0.04-0.35) X 10*3/uL APTT (22.0-30.0) sec D-Dimer (<0.60) mg/L FEU BUN/Creatinine Ratio 23.29 H (12.00-20.00) Ratio Glucose 111 H (70-110) mg/dL POC Glucose (mg/dL) 125 H (75-99) mg/dL Total Protein 5.6 L (6.2-8.2) g/dL Albumin 3.3 L (3.8-4.9) g/dL Albumin/Globulin Ratio 1.43 L (1.60-3.17) g/dL Coronavirus (PCR) (Not Detected) Microbiology - Last 24 Hours (Table) 08/26/21 13:55 Urine Culture - Preliminary Urine,Voided Gram Neg Bacilli
[2021-08-29] MEDS: methylPREDNISolone SOD SUCCI 125 MG/2 ML VIAL IV SCH ×3 (00:51→12:03)
--- NOTE | 2021-08-29 03:32 | PN ---
PROGRESS NOTE DATE OF SERVICE: 08/28/2021 REASON FOR FOLLOWUP: 1. COVID-19 pneumonia. 2. UTI. INTERVAL HISTORY: The patient is afebrile. The patient is currently breathing comfortably on room air. No need for supplemental oxygen. The patient denies having any chest pain or cough. No abdominal pain or diarrhea. PHYSICAL EXAMINATION: Blood pressure 150/85 with a pulse of 82, temperature 98.2. He is 96% on room air. General description is an elderly male lying in bed in no distress. Respiratory system: Unlabored breathing, decreased breath sounds in the base, with no wheeze. Heart S1, S2. Regular rate and rhythm. Abdomen soft, no tenderness. LABS: Hemoglobin is 10.1, white count 13.57, creatinine 0.7. DIAGNOSTIC IMPRESSION AND PLAN: 1. Patient with acute COVID-19 infection with mild illness. No significant hypoxemia and will not qualify for Remdesivir. Patient to continue with current supportive treatment. 2. Patient with Proteus mirabilis UTI covered with Rocephin and continue supportive. MMODL / IJN: [id number] /
[2021-08-29 07:12] LABS: Glucose,Whole Blood 116 mg/dL (75-99)
[2021-08-29] MEDS: INSULIN ASPART (NovoLOG) 100 UNIT/ML VIAL SQ SCH ×2 (08:36→12:16)
[2021-08-29] MEDS: TIOTROPIUM 2.5 MCG INHALER INHALATION SCH (08:45)
[2021-08-29] MEDS: ALBUTEROL HFA INHALER INHALATION SCH ×2 (08:45→11:43)
[2021-08-29] MEDS: SYMBICORT 160-4.5 MCG INHALER INHALATION SCH (08:45)
[2021-08-29 09:08] LABS: Basophils % (A) 0 %; Eosinophils # (A) 0.1 k/uL (0-0.7); Eosinophils % (A) 1 %; HCT 35.5 % (39.0-53.0); HGB 11.8 gm/dL (13.0-17.5); Lymphocytes # (A) 0.6 k/uL (1.0-4.8); Lymphocytes % (A) 5 %; MCH 27.7 pg (25.0-35.0); MCHC 33.2 g/dL (31.0-37.0); MCV 83.3 fL (80.0-100.0); Mean Platelet Volume 6.6; Monocytes # (A) 0.3 k/uL (0-1.0); Monocytes % (A) 3 %; Neutrophils # (A) 11.4 k/uL (1.3-7.7); Neutrophils % (A) 92 %; Platelet Count 703 k/uL (150-450); RBC 4.26 m/uL (4.30-5.90); RDW 13.5 % (11.5-15.5); WBC 12.4 k/uL (3.8-10.6)
[2021-08-29 09:15] LABS: African American GFR (CKD) >90 (>60 ml/min/1.73 sqM); Anion Gap 9 mmol/L; Blood Urea Nitrogen 16 mg/dL (9-20); Calcium 9.3 mg/dL (8.4-10.2); Carbon Dioxide 20 mmol/L (22-30); Chloride 105 mmol/L (98-107); Glucose 220 mg/dL (74-99); Non-African American GFR(CKD) >90 (>60 ml/min/1.73 sqM); Potassium 3.9 mmol/L (3.5-5.1); Sodium 134 mmol/L (137-145)
[2021-08-29] MEDS: SENNOSIDES 8.6 MG TAB PO SCH (09:44)
[2021-08-29] MEDS: CALCIUM CARB-VIT D 500 MG-5 MCG TAB PO SCH (09:44)
[2021-08-29] MEDS: buPROPion XL 300 MG TAB.ER.24H PO SCH (09:44)
[2021-08-29] MEDS: guaiFENesin 600 MG TABLET.ER PO SCH (09:44)
[2021-08-29] MEDS: ARIPiprazole 2 MG TAB PO SCH (09:44)
[2021-08-29] MEDS: VENLAFAXINE HCL ER 150 MG CAP PO SCH (09:44)
[2021-08-29] MEDS: PANTOPRAZOLE 40 MG TABLET PO SCH (09:44)
[2021-08-29] MEDS: LOSARTAN 50 MG TAB PO SCH (09:44)
[2021-08-29] MEDS: NON FORMULARY DRUG (Linaclotide [Linzess] 72 MCG Capsule) PO SCH (09:45)
[2021-08-29] MEDS: NICOTINE 21MG/24HR PATCH TRANSDERM SCH (09:45)
[2021-08-29 10:50] VITALS: BP 155/92; PULSE 87; RESP 18; TEMP 98
[2021-08-29 11:52] LABS: Glucose,Whole Blood 105 mg/dL (75-99)
[2021-08-29] MEDS: SODIUM CHLORIDE 0.9% 1,000 ML IV SCH (12:50)
[2021-08-29] MEDS: IPRATROPIUM BROMIDE 0.06% NASAL SPRAY (15 ML) EA NOSTRIL SCH (12:50)
--- NOTE | 2021-08-29 15:29 | PN ---
PROGRESS NOTE DATE OF SERVICE: 08/29/2021 REASON FOR FOLLOWUP: 1. Proteus mirabilis urinary tract infection. 2. Covid 19 infection. INTERVAL HISTORY: The patient is afebrile. The patient is currently breathing comfortably on room air. He is currently 97%. The patient denies any chest pain. No shortness of breath. Minimal cough. No abdominal pain. No diarrhea. PHYSICAL EXAMINATION: Blood pressure 155/92 with a pulse of 87, temperature 98. He is 97% on room air. General description is an elderly male up in the chair in no distress. Respiratory system: Unlabored breathing, decreased intensity of breath sounds. No wheeze. Heart S1, S2. Regular rate and rhythm. Abdomen soft, no tenderness. LABS: Hemoglobin 11.1, white count 12.4, creatinine 0.71. DIAGNOSTIC IMPRESSION AND PLAN: 1. Patient with Proteus mirabilis urinary tract infection. Overall improvement on Rocephin. Finish therapy with a short course of oral Ceftin. 2. Positive Covid test in this patient with no significant pneumonia, not hypoxic. Treatment is mostly supportive. MMODL / IJN: [id number] /
--- NOTE | 2021-09-03 09:42 | P.DS ---
Providers Date of admission: 08/26/21 16:44 Expected date of discharge: 08/29/21 Attending physician: Jourdan Yeboah Consults: 08/26/21 16:45 Consult Physician Routine Consulting Provider: Carina Howard Consult Reason/Comments: COVID-19 Do you want consulting provider notified?: Yes Primary care physician: Humphrey Rhoades Hospital Course: Final diagnosis Acute urinary tract infection related indwelling Dee catheter, present on admission Acute COVID-19 infection with possible COVID-19 bilateral pneumonia Possible acute bronchitis Hyponatremia history of coronary artery disease Chronic obstructive pulmonary disease, acute exacerbation with acute purulent tracheobronchitis hyperlipidemia Mitral valve prolapse sleep apnea History of migraine history of recent back surgery Pre-diabetes Depression history of ongoing nicotine dependence obesity with a body mass index of 31.9 No code Discharge disposition Patient is being discharged in a stable condition with guarded prognosis to home. Patient will follow-up with Dr. Rhoades in the outpatient setting upon discharge. Patient is to continue with [facility] in the outpatient setting as scheduled. Patient will continue on oral Ceftin 500 mg twice daily for the next 7 days per infectious disease recommendations. Total time taken is greater than 35 minutes. Hospital course This is a 70-year-old male who was recently admitted with acute urinary tract infection also found to have acute COVID-19 infection with ID following. Patient not experiencing any respiratory symptoms and on room air. Patient's cultures showing Proteus mirabilis and will continue on oral Ceftin 500 mg twice daily for 1 week per infectious disease recommendations. Patient is extremely keen on going home and is agreeable to home care. Currently no reports of chest pain, palpitations, or shortness of breath. No reports of nausea or vomiting and patient is tolerating diet. Patient will be discharged home today. Guarded prognosis. On exam vital signs are stable. Cardio S1, S2 are muffled. Respiratory system shows diminished breath sounds at the bases with no wheezing or rhonchi noted. Abdomen is soft and nontender. Nervous system shows no focal deficits. Please refer to medication reconciliation sheet for a list of medications. Patient Condition at Discharge: Fair Plan - Discharge Summary Discharge Rx Participant: No New Discharge Prescriptions: New Cefuroxime Axetil [Ceftin] 500 mg PO BID 7 Days #14 tab Tiotropium 2.5 Mcg/Puff [Spiriva Respimat 2.5 Mcg] 2 puff INHALATION RT-DAILY 30 Days #1 each Acetaminophen Tab [Tylenol] 650 mg PO Q6HR PRN tab PRN Reason: Mild Pain Or Fever > 100.5 Albuterol Inhaler [Ventolin Hfa Inhaler] 1 puff INHALATION RT-Q2H PRN gm PRN Reason: Shortness Of Breath Or Wheezing Albuterol Inhaler [Ventolin Hfa Inhaler] 1 puff INHALATION RT-QID 30 Days #1 gm Continue SUMAtriptan SUCCINATE [Imitrex] 100 mg PO DAILY PRN PRN Reason: Migraine Headache Albuterol Sulfate [Accuneb] 3 ml INHALATION RT-Q4H PRN PRN Reason: Shortness Of Breath Sennosides/Docusate Sodium [Senna Plus 8.6-50 mg Softgel] 1 cap PO BID@0900,2100 Pantoprazole [Protonix] 40 mg PO BID@0900,2099 Losartan Potassium 50 mg PO BID@0900,2099 Simvastatin [Zocor] 40 mg PO HS@2100 Nicotine 21Mg/24Hr Patch [Habitrol] 1 patch TRANSDERM DAILY@0900 Famotidine [Pepcid] 40 mg PO HS@2100 Tamsulosin HCl [Flomax] 0.4 mg PO HS@2100 Linaclotide [Linzess] 72 mcg PO DAILY@0900 ARIPiprazole [Abilify] 2 mg PO DAILY@0900 methylPREDNISolone [Medrol Dose Pack] See Taper PO DAILY 6 Days #1 each Methyl Salicylate/Menth/Camph [Salonpas 3.1%-6.0%-10.0% Patch] 1 patch TOPICAL DAILY@0900 30 Days #30 patch tiZANidine [Zanaflex] 4 mg PO Q8HR PRN PRN Reason: Muscle Spasm oxyCODONE-APAP 5-325MG [Percocet 5-325 mg] 1 tab PO Q4H PRN PRN Reason: Pain clonazePAM [KlonoPIN] 0.25 mg PO DAILY PRN PRN Reason: Anxiety Ipratropium Ward 0.06%Nasal [Atrovent Nasal 0.06%] 2 spray EA NOSTRIL TID@0900,1500,2100 Budesonide/Formoterol Fumarate [Symbicort 160-4.5 Mcg Inhaler] 2 puff INHALATION RT-BID@0900,2100 guaiFENesin [Mucinex] 600 mg PO BID@899,2099 buPROPion HCL [Wellbutrin XL] 300 mg PO DAILY@09 Venlafaxine HCl [Effexor XR] 150 mg PO DAILY@09 QUEtiapine [SEROquel] 25 mg PO HS@2099 Pramipexole [Mirapex] 0.5 mg PO HS@2099 Metoprolol Succinate (ER) [Toprol XL] 50 mg PO HS@2099 Gabapentin 300 mg PO HS@2099 Finasteride [Proscar] 5 mg PO HS@2099 Calcium Carbonate/Vitamin D3 [Calcium 500 mg-Vit D3 5 mcg (200 Unit)] 1 tab PO DAILY@09 Discontinued Doxycycline [Vibramycin] 100 mg PO BID@899,2099 Discharge Medication List ARIPiprazole [Abilify] 2 mg PO DAILY@89908/26/21 [History] Albuterol Sulfate [Accuneb] 3 ml INHALATION RT-Q4H PRN 08/26/21 [History] Budesonide/Formoterol Fumarate [Symbicort 160-4.5 Mcg Inhaler] 2 puff INHALATION RT-BID@899,209908/26/21 [History] Calcium Carbonate/Vitamin D3 [Calcium 500 mg-Vit D3 5 mcg (200 Unit)] 1 tab PO DAILY@89908/26/21 [History] Famotidine [Pepcid] 40 mg PO HS@209908/26/21 [History] Finasteride [Proscar] 5 mg PO HS@209908/26/21 [History] Gabapentin 300 mg PO HS@209908/26/21 [History] Ipratropium Ward 0.06%Nasal [Atrovent Nasal 0.06%] 2 spray EA NOSTRIL TID@0900,1499,209908/26/21 [History] Linaclotide [Linzess] 72 mcg PO DAILY@89908/26/21 [History] Losartan Potassium 50 mg PO BID@899,209908/26/21 [History] Metoprolol Succinate (ER) [Toprol XL] 50 mg PO HS@209908/26/21 [History] Nicotine 21Mg/24Hr Patch [Habitrol] 1 patch TRANSDERM DAILY@89908/26/21 [History] Pantoprazole [Protonix] 40 mg PO BID@0900,209908/26/21 [History] Pramipexole [Mirapex] 0.5 mg PO HS@209908/26/21 [History] QUEtiapine [SEROquel] 25 mg PO HS@209908/26/21 [History] SUMAtriptan SUCCINATE [Imitrex] 100 mg PO DAILY PRN 08/26/21 [History] Sennosides/Docusate Sodium [Senna Plus 8.6-50 mg Softgel] 1 cap PO BID@09,209908/26/21 [History] Simvastatin [Zocor] 40 mg PO HS@209908/26/21 [History] Tamsulosin HCl [Flomax] 0.4 mg PO HS@209908/26/21 [History] Venlafaxine HCl [Effexor XR] 150 mg PO DAILY@89908/26/21 [History] buPROPion HCL [Wellbutrin XL] 300 mg PO DAILY@89908/26/21 [History] clonazePAM [KlonoPIN] 0.25 mg PO DAILY PRN 08/26/21 [History] guaiFENesin [Mucinex] 600 mg PO BID@899,209908/26/21 [History] oxyCODONE-APAP 5-325MG [Percocet 5-325 mg] 1 tab PO Q4H PRN 08/26/21 [History] tiZANidine [Zanaflex] 4 mg PO Q8HR PRN 08/26/21 [History] Acetaminophen Tab [Tylenol] 650 mg PO Q6HR PRN tab 08/29/21 [Rx] Albuterol Inhaler [Ventolin Hfa Inhaler] 1 puff INHALATION RT-Q2H PRN gm 08/29/21 [Rx] Albuterol Inhaler [Ventolin Hfa Inhaler] 1 puff INHALATION RT-QID 30 Days #1 gm 08/29/21 [Rx] Cefuroxime Axetil [Ceftin] 500 mg PO BID 7 Days #14 tab 08/29/21 [Rx] Methyl Salicylate/Menth/Camph [Salonpas 3.1%-6.0%-10.0% Patch] 1 patch TOPICAL DAILY@0900 30 Days #30 patch 11/27/21 [Rx] Tiotropium 2.5 Mcg/Puff [Spiriva Respimat 2.5 Mcg] 2 puff INHALATION RT-DAILY 30 Days #1 each 08/29/21 [Rx] methylPREDNISolone [Medrol Dose Pack] See Taper PO DAILY 6 Days #1 each 08/29/21 [Rx] Follow up Appointment(s)/Referral(s): Humphrey Rhoades MD [Primary Care Provider] - 1-2 days (office closed at time of discharge. Please call Tuesday to schedule appointment ) [facility], [NON-STAFF] - 1 Week Patient Instructions/Handouts: Coronavirus Disease 2019 (COVID-19), Urinary Tract Infection in Men (DC) Activity/Diet/Wound Care/Special Instructions: Activity Limited until follow-up Follow up with primary care provider on discharge Continue taking medications as prescribed Continue with home care Continue heart healthy diet Continue monitoring blood sugars and keep a diary for primary care follow-up Continue with isolation precautions and continue to wear a mask frequent handwashing and avoid large groups of people or sick contacts Continue using a walker due to weakness and continue with home care for some rehab Discharge Disposition: HOME WITH HOME HEALTH SERVICES
== END 2021-08-29 15:17 | disposition home health service (06) ==
LOC: EC 13:45 → INTOOBSV 16:44 → EDSEX 16:44 → 4SSUR 16:44 → UNDODISIN 08-29 15:17
PROVIDERS: ADMIT Hospitalist; ATTEND Hospitalist
DX: T83.511A Infection and inflammatory reaction due to indwelling urethral catheter, initial encounter (principal); N39.0 Urinary tract infection, site not specified; B96.4 Proteus (mirabilis) (morganii) as the cause of diseases classified elsewhere; U07.1 COVID-19; R05.9 Cough, unspecified; E87.1 Hypo-osmolality and hyponatremia; I25.10 Atherosclerotic heart disease of native coronary artery without angina pectoris; J44.1 Chronic obstructive pulmonary disease with (acute) exacerbation; J44.0 Chronic obstructive pulmonary disease with (acute) lower respiratory infection; I34.1 Nonrheumatic mitral (valve) prolapse; G47.30 Sleep apnea, unspecified; E66.9 Obesity, unspecified; Z68.31 Body mass index [BMI] 31.0-31.9, adult; E86.0 Dehydration; F17.210 Nicotine dependence, cigarettes, uncomplicated; F32.A Depression, unspecified; R73.03 Prediabetes; G89.29 Other chronic pain; E78.5 Hyperlipidemia, unspecified; I10 Essential (primary) hypertension; Z98.890 Other specified postprocedural states; Z20.822 Contact with and (suspected) exposure to COVID-19; Z79.899 Other long term (current) drug therapy; Z79.51 Long term (current) use of inhaled steroids; Z88.8 Allergy status to other drugs, medicaments and biological substances; Z88.4 Allergy status to anesthetic agent; Z91.048 Other nonmedicinal substance allergy status; Z98.1 Arthrodesis status; Z96.653 Presence of artificial knee joint, bilateral; Z96.612 Presence of left artificial shoulder joint; Z99.89 Dependence on other enabling machines and devices; Z86.69 Personal history of other diseases of the nervous system and sense organs
CPT/HCPCS: 99285; 96376 ×4; 96361 ×3; 96365; 96366; 36415; 94640 ×8; 93005; 97162; 85379; 80053 ×2; 80048 ×2; 82550; 83735; 84484; 85025 ×4; 85610; 85730; 81001; 87086; 87077; 87186; 87635; 71045; 71046; G0378 ×4; U0003; U0005; S4990 ×3; S0138 ×3; J2930 ×4; J0696 ×4

== ENCOUNTER 2022-03-27 18:08 | Emergency (ER) | payer MEDICARE ==
--- NOTE | 2022-03-27 18:58 | ED ---
General Adult HPI - General Chief complaint: Wound/Laceration Stated complaint: Incision issues/post op Time Seen by Provider: 03/27/22 18:39 Source: patient, RN notes reviewed, old records reviewed Mode of arrival: ambulatory Limitations: no limitations - History of Present Illness Initial comments: 71-year-old 2 days status post left shoulder replacement at outside hospital presents with bleeding through his postoperative dressing. Paramedics had evaluated the patient home and replaced the dressing. There is minimal further bleeding. The patient did not feel lightheaded or dizzy. The blood was dark red. He is on aspirin, no other anticoagulants. No fever. - Related Data Home Medications Medication Instructions Recorded Confirmed ARIPiprazole [Abilify] 2 mg PO DAILY@89908/26/21 08/26/21 Albuterol Sulfate [Accuneb] 3 ml INHALATION RT-Q4H PRN 08/26/21 08/26/21 Budesonide/Formoterol Fumarate 2 puff INHALATION RT-BID@899,209908/26/21 08/26/21 [Symbicort 160-4.5 Mcg Inhaler] Calcium Carbonate/Vitamin D3 1 tab PO DAILY@89908/26/21 08/26/21 [Calcium 500 mg-Vit D3 5 mcg (200 Unit)] Famotidine [Pepcid] 40 mg PO HS@209908/26/21 08/26/21 Finasteride [Proscar] 5 mg PO HS@209908/26/21 08/26/21 Gabapentin 300 mg PO HS@209908/26/21 08/26/21 Ipratropium Lander 0.06%Nasal 2 spray EA NOSTRIL 08/26/21 08/26/21 [Atrovent Nasal 0.06%] TID@0900,1499,2099 Linaclotide [Linzess] 72 mcg PO DAILY@89908/26/21 08/26/21 Losartan Potassium 50 mg PO BID@899,209908/26/21 08/26/21 Metoprolol Succinate (ER) [Toprol 50 mg PO HS@209908/26/21 08/26/21 XL] Nicotine 21Mg/24Hr Patch [Habitrol] 1 patch TRANSDERM DAILY@89908/26/21 08/26/21 Pantoprazole [Protonix] 40 mg PO BID@0900,209908/26/21 08/26/21 Pramipexole [Mirapex] 0.5 mg PO HS@209908/26/21 08/26/21 QUEtiapine [SEROquel] 25 mg PO HS@209908/26/21 08/26/21 SUMAtriptan succinate [Imitrex] 100 mg PO DAILY PRN 08/26/21 08/26/21 Sennosides/Docusate Sodium [Senna 1 cap PO BID@899,209908/26/21 08/26/21 Plus 8.6-50 mg Softgel] Simvastatin [Zocor] 40 mg PO HS@209908/26/21 08/26/21 Tamsulosin HCl [Flomax] 0.4 mg PO HS@209908/26/21 08/26/21 Venlafaxine HCl [Effexor XR] 150 mg PO DAILY@89908/26/21 08/26/21 buPROPion HCL [Wellbutrin XL] 300 mg PO DAILY@89908/26/21 08/26/21 clonazePAM [KlonoPIN] 0.25 mg PO DAILY PRN 08/26/21 08/26/21 guaiFENesin [Mucinex] 600 mg PO BID@899,209908/26/21 08/26/21 oxyCODONE-APAP 5-325MG [Percocet 1 tab PO Q4H PRN 08/26/21 08/26/21 5-325 mg] tiZANidine [Zanaflex] 4 mg PO Q8HR PRN 08/26/21 08/26/21 Previous Rx's Medication Instructions Recorded Acetaminophen Tab [Tylenol] 650 mg PO Q6HR PRN tab 08/29/21 Albuterol Inhaler [Ventolin Hfa 1 puff INHALATION RT-Q2H PRN gm 08/29/21 Inhaler] Albuterol Inhaler [Ventolin Hfa 1 puff INHALATION RT-QID 30 Days 08/29/21 Inhaler] #1 gm Methyl Salicylate/Menth/Camph 1 patch TOPICAL DAILY@0900 30 Days 08/29/21 [Salonpas 3.1%-6.0%-10.0% Patch] #30 patch Tiotropium 2.5 Mcg/Puff [Spiriva 2 puff INHALATION RT-DAILY 30 Days 08/29/21 Respimat 2.5 Mcg] #1 each cefUROXime axetiL [Ceftin] 500 mg PO BID 7 Days #14 tab 08/29/21 methylPREDNISolone [Medrol Dose See Taper PO DAILY 6 Days #1 each 08/29/21 Pack] Allergies Allergy/AdvReac Type Severity Reaction Status Date / Time ketamine Allergy Unknown Verified 03/27/22 18:22 lisinopril Allergy Unknown Verified 03/27/22 18:22 varenicline Allergy Unknown Verified 03/27/22 18:22 adhesive tape AdvReac Rash/Hives Verified 03/27/22 18:22 Review of Systems ROS Statement: Those systems with pertinent positive or pertinent negative responses have been documented in the HPI. ROS Other: All systems not noted in ROS Statement are negative. Past Medical History Past Medical History: Coronary Artery Disease (CAD), COPD, Hyperlipidemia, Mitral Valve Prolapse (MVP), Sleep Apnea/CPAP/BIPAP Additional Past Medical History / Comment(s): Migraines, chronic back pain, prediabetes, History of Any Multi-Drug Resistant Organisms: None Reported Past Surgical History: Back Surgery, Joint Replacement Additional Past Surgical History / Comment(s): hernias, eyes, bilateral knee replacements, shoulder replacement on left, Left shoulder revision reversal 03/25/22 Past Anesthesia/Blood Transfusion Reactions: No Reported Reaction Past Psychological History: Depression Smoking Status: Current every day smoker Past Alcohol Use History: None Reported Past Drug Use History: None Reported General Exam Limitations: no limitations General appearance: alert, in no apparent distress Head exam: Present: atraumatic, normocephalic Eye exam: Present: normal appearance, PERRL ENT exam: Present: normal exam Neck exam: Present: normal inspection. Absent: tenderness, meningismus Respiratory exam: Present: normal lung sounds bilaterally. Absent: respiratory distress, wheezes Cardiovascular Exam: Present: regular rate, normal rhythm GI/Abdominal exam: Present: soft. Absent: distended, tenderness, guarding Extremities exam: Present: normal capillary refill, other (Left anterior shoulder incision minimal bleeding, incision does not appear infected). Absent: pedal edema Neurological exam: Present: alert, oriented X3, CN II-XII intact. Absent: motor sensory deficit Course Vital Signs 03/27/22 18:18 Temperature 98.6 F Pulse Rate 92 Respiratory 16 Rate Blood Pressure 112/84 O2 Sat by Pulse 96 Oximetry Medical Decision Making - Medical Decision Making 71-year-old male status post left shoulder replacement 2 days prior with incisional bleeding. There is no further bleeding. The blood that was seen prior to arrival was dark red. Patient is overall doing well, afebrile, pain is improving. I do dressing is applied and the patient should follow-up with the surgeon, return as needed. Disposition Clinical Impression: Postoperative bleeding from incision Disposition: HOME SELF-CARE Condition: Good Instructions (If sedation given, give patient instructions): Postoperative Bleeding (ED) Additional Instructions: Please monitor dressing, please inform her surgeon of this incisional bleeding. Please return with worsening or changing symptoms. Is patient prescribed a controlled substance at d/c from ED?: No Referrals: Nonstaff,Physician [Primary Care Provider] - 1-2 days Time of Disposition: 18:54
[2022-03-27 19:29] VITALS: BP 113/70; PULSE 80; RESP 20; TEMP 98.2
== END 2022-03-27 19:28 | disposition home or self-care (01) ==
LOC: EC 18:08
DX: L76.22 Postprocedural hemorrhage of skin and subcutaneous tissue following other procedure (principal); I25.10 Atherosclerotic heart disease of native coronary artery without angina pectoris; J44.9 Chronic obstructive pulmonary disease, unspecified; E78.5 Hyperlipidemia, unspecified; F32.A Depression, unspecified; F17.200 Nicotine dependence, unspecified, uncomplicated; Z79.51 Long term (current) use of inhaled steroids; Z79.899 Other long term (current) drug therapy
CPT/HCPCS: 99283

== ENCOUNTER → 2024-04-09 | Outpatient (CLI) | payer MEDICARE ==
[2024-04-09 11:01] LABS: Partial Thromboplastin Time 24.8 sec (22.0-30.0); Prothrombin Time 10.9 sec (10.0-12.5)
[2024-04-09 11:06] LABS: HCT 46.3 % (39.0-53.0); HGB 14.4 gm/dL (13.0-17.5); MCV 87.1 fL (80.0-100.0); Platelet Count 273 k/uL (150-450); RBC 5.32 m/uL (4.30-5.90); WBC 6.8 k/uL (3.8-10.6)
[2024-04-09 16:13] LABS: Calcium 10.1 mg/dL (8.7-10.3); Carbon Dioxide 22.7 mmol/L (21.6-31.8); Chloride 101 mmol/L (96-109); Glucose 122 mg/dL (70-110); Potassium 4.5 mmol/L (3.5-5.5); Sodium 137 mmol/L (135-145)
== END | disposition home or self-care (01) ==
LOC: LABWHC1 10:06
PROVIDERS: ATTEND Internal Medicine Cardiovascular Disease
DX: Z01.810 Encounter for preprocedural cardiovascular examination (principal); I25.10 Atherosclerotic heart disease of native coronary artery without angina pectoris
CPT/HCPCS: 36415; 80048; 85027; 85610; 85730